=== PATIENT | male | born 2000 | race Caucasian/White ===

== ENCOUNTER 2019-05-28 14:31 | Inpatient (IN) | payer OTHER ==
[~2019-05-28] VITALS: Ht 185.4 cm; Wt 86.8 kg
[2019-05-28 15:12] LABS: HEMATOCRIT 44.1 % (42.0-52.0); HEMOGLOBIN 15.1 g/dl (13.5-17.5); MEAN CORPUSCULAR HEMOGLOBIN 29.4 pg (27.0-33.0); MEAN CORPUSCULAR HGB CONC 34.2 g/dl (32.0-36.5); PLATELET COUNT, AUTOMATED 177 10^3/uL (150-450); RED BLOOD COUNT 5.13 10^6/uL (4.30-6.10); WHITE BLOOD COUNT 4.8 10^3/uL (4.0-10.0)
[2019-05-28] MEDS ORDERED: NS 1,000 ML IV ONE (15:15)
[2019-05-28] MEDS ORDERED: CHARCOAL ACTIVATED LIQUID 25 GM/120 ML BTL PO ONE (15:15)
[2019-05-28 15:33] LABS: AMPHETAMINES LEVEL URINE NEGATIVE (NEGATIVE); BARBITURATES URINE NEGATIVE (NEGATIVE); BENZODIAZEPINES URINE NEGATIVE (NEGATIVE); CANNABINOIDS URINE NEGATIVE (NEGATIVE); COCAINE METABOLITE URINE NEGATIVE (NEGATIVE); METHADONE URINE NEGATIVE (NEGATIVE); OPIATES URINE NEGATIVE (NEGATIVE); PHENCYCLIDINE URINE NEGATIVE (NEGATIVE)
[2019-05-28 15:55] LABS: ACETAMINOPHEN LEVEL 18.4 UG/ML (10.0-30.0); ALBUMIN 3.9 GM/DL (3.2-5.2); ALT/SGPT 24 U/L (12-78); BILIRUBIN,DIRECT 0.2 MG/DL (0.0-0.2); BILIRUBIN,TOTAL 0.4 MG/DL (0.2-1.0); BLOOD UREA NITROGEN 6 MG/DL (7-18); CALCIUM LEVEL 8.4 MG/DL (8.5-10.1); CARBON DIOXIDE LEVEL 27 MEQ/L (21-32); CHLORIDE LEVEL 109 MEQ/L (98-107); CREATININE FOR GFR 1.03 MG/DL (0.70-1.30); ETHYL ALCOHOL (ETHANOL) 0.004 % (0.000-0.010); GLOMERULAR FILTRATION RATE > 60.0 (>60); GLUCOSE, FASTING 74 MG/DL (70-100); SALICYLATE LEVEL < 1.7 MG/DL (5.0-30.0); SODIUM LEVEL 143 MEQ/L (136-145); THYROID STIMULATING HORMONE 0.786 uIU/ML (0.358-3.740)
[2019-05-28 19:26] LABS: ACETAMINOPHEN LEVEL 5.3 UG/ML (10.0-30.0); BLOOD UREA NITROGEN 4 MG/DL (7-18); CALCIUM LEVEL 8.5 MG/DL (8.5-10.1); CARBON DIOXIDE LEVEL 24 MEQ/L (21-32); CHLORIDE LEVEL 110 MEQ/L (98-107); CREATININE FOR GFR 0.95 MG/DL (0.70-1.30); GLOMERULAR FILTRATION RATE > 60.0 (>60); GLUCOSE, FASTING 83 MG/DL (70-100); POTASSIUM SERUM 3.7 MEQ/L (3.5-5.1); SODIUM LEVEL 142 MEQ/L (136-145)
--- NOTE | 2019-05-28 20:48 | ECGEPIP ---
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
--- NOTE | 2019-05-28 20:51 | ECGEPIP ---
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
[2019-05-28] MEDS: THIAMINE 100 MG TAB PO SCH (21:00)
[2019-05-28] MEDS ORDERED: NICOTINE 21MG/24HR 1 EA TRANSDERMAL TD ONE (21:30)
[2019-05-28] MEDS ORDERED: MOM 30ML SUSPENSION UDC PO PRN (22:45)
[2019-05-28] MEDS ORDERED: LORazepam 2 MG TAB PO PRN (22:45)
[2019-05-28] MEDS ORDERED: hydrOXYzine 50 MG TAB PO PRN (22:45)
[2019-05-28] MEDS ORDERED: ACETAMINOPHEN TAB 650MG DOSE (2X325MG) PO PRN (22:45)
[2019-05-28] MEDS ORDERED: MAALOX 30 ML SUSP *UDC PO PRN (22:45)
[2019-05-29 04:35] VITALS: BP 134/80
[2019-05-29 06:00] VITALS: BP 111/72
--- NOTE | 2019-05-29 09:07 | MHHPEPDOC ---
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 reportedly after taking two Sudafed and drinking NyQuil. He has a significant problem with alcoholism and has gone through the alcohol treatment program. He had been sober for three weeks and began to drink NyQuil. He reports that he wanted to drink until he pass out, but was ambivalent about waking up. The patient was subsequently brought in and assessed. When the patient was met with, he described that he'd had multiple psychosocial stressors in the form of difficulties with girlfriend, difficulties with brother and had been struggling with alcoholism. He reports that he had a cold and that he had difficulties with sleeping and had been denied a pass to see his girlfriend, and he worried significantly that he would lose her, but he say that he had taken the NyQuil as a way of passing out, but had specifically said he had not drunken it in specific order to end his life. He does describe some appetite, sleeping problems and fatigue problems secondary to multiple stressors, but reports prior to this he had been doing quite well, enjoys his job in the and reports that he feels he needs help with his alcoholism. Review Of Systems Depression: As above. Anxiety: The patient denies any excessive worry associated with physical symptoms. They deny any experience of discreet panic in the past. Jaylin: The patient denies any episodes of euphoria/dysphoria associated with decreased need for sleep, hedonism, talkatively or impulsivity lasting longer than 5 days. Psychotic: The patient denies any experiences of auditory or visual hallucinations. They deny any episodes of paranoia or delusional thinking in the past Trauma: The patient denies any traumatic events associated with nightmares or intrusive thoughts. Borderline: The patient screens negative for borderline personality at this junction. Past Psychiatric History Notes from [facility] where he gets therapy were reviewed. He's never been tried on medications. He has no previous psychiatric diagnosis. Reports no history of suicide attempts or psychiatric inpatient admissions. Allergies Please see below. Family Psychiatric History The patient reports his mom and dad had "everything." His aunt suffered from heroin and that his grandfather had by suicide. Social History The patient currently lives in local areas of [place], private first class, never . Has a girlfriend for last 6 months, no children. He's had no legal trouble except for some income. Completed high school and has been generally doing well in his service in the with only a reprimand for leaving his duty while intoxicated, which is a recent stressor. He's been in the [employer] for 2 years. No history of deployments. He is not currently being med- boarded. His estimated date of leaving the services is 2020. Substance Abuse History The patient reports that he smokes tobacco roughly half a pack a day. He reports that he used to drink until he would black out regularly. He has been sober for three weeks, but had a cold and started to drink the NyQuil noticing that it had alcohol in it. Denies any history of cannabis, opioid, stimulant or other use. Is currently in the [facility] addictions program. No history of long-term inpatient treatment. Medical History Patient has no significant past medical history. Mental Status Examination General: Well dressed with good hygiene Speech: Spontaneous and fluid Thought processes: Linear and logical MSK: Smooth and coordinated gait, no signs of tremors or involuntary orofacial movements Thought content: Future orientated Abstract reasoning, and computation: Intact Description of associations: Intact Description of abnormal or psychotic thoughts: Denies any suicidal or homicidal ideation. Denies any auditory or visual hallucinations. Does not appear to be responding to internal stimuli. Does not appear to be endorsing any bizarre or paranoid ideation. Judgment: fair Insight: fair Orientation: Alert and orientated 3 Cognition: Grossly normal Recent and remote memory: Intact Attention span and concentration: Intact Fund of knowledge: Adequate Mood: "okay" Affect: Euthymic with a full range Diagnoses Unspecified depressive disorder. Rule out adjustment versus substance intoxication. Alcohol use disorder, severe. Tobacco use disorder, severe. 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 He has a significant history of alcoholism and he notes that he does drink alcohol and had been drinking the NyQuil as it was a reported substitute for alcohol. He had reportedly made statements that he was trying to pass out and didn't care whether he "woke up or not." However, he reports that he specifically was not intending to end his life. The patient did not require any significant medical interventions in the emergency room and is possible he was intoxicated with the cough syrup prior to the reported statements. We'll start Wellbutrin 150 mg extend release. Discussed risk, benefits, potential side effects. Discussed nicotine treatment as well. However, the patient reports that he is pre-contemplative at this time. Disposition The patient will be discharged tomorrow as he does not meet criteria for involuntary holding. At the time of tomorrow the 40-hour extensions, he has not been having suicidal or homicidal ideation. He has not been demonstrating any significant signs or symptoms of mental illness impairing his ability to take care of himself. He has been amenable, friendly and nearly ideal patient on the unit. The notes from [facility] do not support a history of significant risk and the events around he reported "overdose" are highly consistent with an individual intoxicated and indicted to alcohol, drinking NyQuil as a way of avoiding a standard practice/thought process and alcoholism rather than severe major depression. The patient although is amenable to trying Wellbutrin. Problem List Ineffective coping to substance use. Initial Treatment Plan 1. Patient was admitted on a 9.39 legal status. 2. Complete history was obtained. 3. With patients permission, family will be contacted and database will be expanded. 4. Patients medication regimen will be reviewed and changed accordingly. 5. Patient will be provided with protected environment. 6. Patient will be treated with individual, group, and milieu therapies. 7. Patient will receive supportive psych-education. 8. Discharge planning will commence immediately. 9. Outpatient follow-up treatment will be strongly recommended. 10. The initial treatment plan will focus initially on: Estimated Length Of Stay 2 days. Time Spent 45 minutes. Vital Signs Vital Signs Date Time Temp Pulse Resp B/P (MAP) Pulse Ox O2 Delivery O2 Flow Rate FiO2 05/29/19 06:00 99.1 87 16 111/72 (85) 05/29/19 04:22 100 Room Air Laboratory Data 24H Labs Laboratory Tests 2 05/28/19 14:46: Urine Amphetamines Screen NEGATIVE, Urine Benzodiazepines Screen NEGATIVE, Urine Opiates Screen NEGATIVE, Urine Methadone Screen NEGATIVE, Urine Barbiturates Screen NEGATIVE, Urine Phencyclidine Screen NEGATIVE, Urine Cocaine Metabolite Screen NEGATIVE, Urine Cannabinoids Screen NEGATIVE 05/28/19 14:56: Nucleated Red Blood Cells % (auto) 0.0, Anion Gap 7L, Glomerular Filtration Rate > 60.0, Calcium Level 8.4L, Aspartate Amino Transf (AST/SGOT) 3L, Alanine Aminotransferase (ALT/SGPT) 24, Alkaline Phosphatase 93, Total Bilirubin 0.4, Direct Bilirubin 0.2, Total Protein 7.0, Albumin 3.9, Albumin/Globulin Ratio 1.26, Thyroid Stimulating Hormone (TSH) 0.786, Salicylates Level < 1.7L, Acetaminophen Level 18.4, Ethyl Alcohol Level 0.004 05/28/19 18:36: Anion Gap 8, Glomerular Filtration Rate > 60.0, Calcium Level 8.5, Acetaminophen Level 5.3L, Blood Urea Nitrogen 4L, Creatinine 0.95, Sodium Level 142, Potassium Level 3.7, Chloride Level 110H, Carbon Dioxide Level 24 CBC/BMP Laboratory Tests 05/28/19 14:56 Red Blood Count 5.13, Mean Corpuscular Volume 86.0, Mean Corpuscular Hemoglobin 29.4, Mean Corpuscular Hemoglobin Concent 34.2, Red Cell Distribution Width 12.0 05/28/19 18:36 Calcium Level 8.5 Medications Scheduled Bupropion Hcl (Bupropion Xl) 150 Mg Tab.er.24h, 150 MG PO DAILY for mood Nicotine (Nicotrol) 10 Mg Cartridge, 1 PUFF INH ASDIRECTED for tobacco Allergies Coded Allergies: No Known Allergies (Unverified , 05/28/19) BRYON OROZCO DO May 29, 2019 09:07
[2019-05-29] MEDS: FOLIC ACID 1 MG TAB PO SCH (09:21)
[2019-05-29] MEDS: THIAMINE 100 MG TAB PO SCH ×2 (09:21→20:30)
[2019-05-29] MEDS: MULTIVITAMINS/MINERALS THERAP 1 TAB PO SCH (09:21)
--- NOTE | 2019-05-29 12:42 | HPEPDOC ---
[facility] Medical History & Physical Date of Admission May 29, 2019 Date of Service: May 29, 2019 History and Physical CHIEF COMPLAINT: HISTORY OF PRESENT ILLNESS: 19 yo male admitted to [facility], hospitalist consulted for medical management. Patient with no medical complaints today. He acknowledge nicotine abuse and alcohol abuse. Last drink over one week ago. States he has never gone through alcohol withdrawal. States he 'drinks as much as he can', but could not quantify amount or frequency. Denies chest pain, headache, changes in vision, abdominal pain, N/V/D. PAST MEDICAL HISTORY: Denies PAST SURGICAL HISTORY: Denies SOCIAL HISTORY: Tobacco use: states 5-10 cigarettes / day for few years ETOH: admits to EtOH abuse Illicit drug use: denies ALLERGIES: Please see below. REVIEW OF SYSTEMS: Negative except as per HPI. HOME MEDICATIONS: Please see below. PHYSICAL EXAMINATION: VITAL SIGNS: See below General: NAD, sitting comfortably at edge of exam table HEENT: NC/AT, EOMI, PERRL Lungs: CTA B/L Heart: +S1S2, RRR Abd: soft, NT, +BS Ext: no edema LABORATORY DATA: See below. MICROBIOLOGY: Please see below. ASSESSMENT: 19 yo male admitted to [facility], hospitalist consult for medical management. #Psych - as per primary team #alcohol abuse - no s/s withdrawal #nicotine abuse - nicotine replacement therapy Vital Signs Vital Signs Date Time Temp Pulse Resp B/P (MAP) Pulse Ox O2 Delivery O2 Flow Rate FiO2 05/29/19 09:46 Room Air 05/29/19 06:00 99.1 87 16 111/72 (85) 05/29/19 04:22 100 Laboratory Data Labs 24H Laboratory Tests 2 05/28/19 14:46: Urine Amphetamines Screen NEGATIVE, Urine Benzodiazepines Screen NEGATIVE, Urine Opiates Screen NEGATIVE, Urine Methadone Screen NEGATIVE, Urine Barbiturates Screen NEGATIVE, Urine Phencyclidine Screen NEGATIVE, Urine Cocaine Metabolite Screen NEGATIVE, Urine Cannabinoids Screen NEGATIVE 05/28/19 14:56: Nucleated Red Blood Cells % (auto) 0.0, Anion Gap 7L, Glomerular Filtration Rate > 60.0, Calcium Level 8.4L, Aspartate Amino Transf (AST/SGOT) 3L, Alanine Aminotransferase (ALT/SGPT) 24, Alkaline Phosphatase 93, Total Bilirubin 0.4, Direct Bilirubin 0.2, Total Protein 7.0, Albumin 3.9, Albumin/Globulin Ratio 1.26, Thyroid Stimulating Hormone (TSH) 0.786, Salicylates Level < 1.7L, Acetaminophen Level 18.4, Ethyl Alcohol Level 0.004 05/28/19 18:36: Anion Gap 8, Glomerular Filtration Rate > 60.0, Calcium Level 8.5, Acetaminophen Level 5.3L, Blood Urea Nitrogen 4L, Creatinine 0.95, Sodium Level 142, Potassium Level 3.7, Chloride Level 110H, Carbon Dioxide Level 24 CBC/BMP Laboratory Tests 05/28/19 14:56 Red Blood Count 5.13, Mean Corpuscular Volume 86.0, Mean Corpuscular Hemoglobin 29.4, Mean Corpuscular Hemoglobin Concent 34.2, Red Cell Distribution Width 12.0 05/28/19 18:36 Calcium Level 8.5 Home Medications No Active Prescriptions or Reported Meds Allergies Coded Allergies: No Known Allergies (Unverified , 05/28/19) A-FIB/CHADSVASC A-FIB History Current/History of A-Fib/PAF?: No PASTOR OTT MD May 29, 2019 12:42
[2019-05-29] MEDS ORDERED: guaiFENesin ER 600 MG TAB PO PRN (17:00)
[2019-05-29] MEDS ORDERED: OXYMETAZOLINE NASAL SPRAY (AFRIN) PRN (17:00)
[2019-05-29 18:00] VITALS: BP 132/82
[2019-05-29] MEDS ORDERED: MIRTAZAPINE 15 MG TAB PO SCH (21:00)
[2019-05-30 06:29] VITALS: BP 115/69
[2019-05-30] MEDS ORDERED: buPROPion **XL** TABLET 150MG (WELLBUTRIN XL) PO SCH (09:00)
--- NOTE | 2019-05-30 09:41 | MHDSPDOC ---
[facility] Discharge Summary Discharge Summary DATE OF ADMISSION: May 28, 2019 at 22:34 DATE OF DISCHARGE: 05/30/19 Discharge Glenn Mejia MRN: N/A Date of : N/A Date of Service: 05/30/2019 Diagnoses Unspecified depressive disorder. Rule out adjustment versus substance intoxication. Alcohol use disorder, severe. Tobacco use disorder, severe. 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 He has a significant problem with alcoholism and has gone through the alcohol treatment program. He had been sober for three weeks and began to drink NyQuil. He reports that he wanted to drink until he pass out, but was ambivalent about waking up. The patient was subsequently brought in and assessed. When the patient was met with, he described that he'd had multiple psychosocial stressors in the form of difficulties with girlfriend, difficulties with brother and had been struggling with alcoholism. He reports that he had a cold and that he had difficulties with sleeping and had been denied a pass to see his girlfriend, and he worried significantly that he would lose her, but he say that he had taken the NyQuil as a way of passing out, but had specifically said he had not drunken it in specific order to end his life. He does describe some appetite, sleeping problems and fatigue problems secondary to multiple stressors, but reports prior to this he had been doing quite well, enjoys his job in the and reports that he feels he needs help with his alcoholism. Consultants Involved Hospitalist/PCP screening Treatment and Progress On The Unit The patient was admitted to the Inpatient Unit and initially observed. He was started on Wellbutrin 150 mg daily. He did well and recovered very quickly suggesting a diagnosis of adjustment disorder. He relates the situation that had led him into the Inpatient Unit. It appeared that the patient stated that he was drinking NyQuil as he suffers from significant alcoholism and noted that he usually will drink this to pass out, but he had stated that he had had a thought that he wouldn't care necessarily if he didn't wake up, but had not specifically drunk in the NyQuil in order to self-harm. He explained this well and collateral information supported this series of events, review of his [facility] records, which revealed no safety problems, clinical depression or any other issues other than adjustment to a relational stressor, but no official psychiatric diagnosis. The patient was observed for 48 hours, where he was not demonstrating any suicidal or homicidal ideation. He was participating well in treatment demonstrated very good insight into his situation and had consented to going to long-term substance use treatment, as he had recognized that is drinking was a problem. The patient, however, did request to leave and after speaking to his Commander, Captain Brenner and Stephania Patel [facility], they were very ambivalent about him leaving on Sunday. However, he was at the 48-hour darrell, in which he would then need to be extended involuntarily. After review of the compilation of the information above as well as no suicidal or homicidal ideation being relate during his stay with us as well as no signs or symptoms of significant depression impairing his ability to care for himself. My clinical judgment, I could not ethically extend the patient's involuntary admission. As he was not posing any immediate risk to himself or others. I relayed this to Stephania Patel. They had some concerns; however, when posed they were not able to give me any discrete rationale or information that was not already part of my consideration, in which the patient's admission could be ethically extended. He declined further voluntary admission after discussion of the risks and benefits of that and was discharged in good hussain on Wellbutrin 150 mg as well as a Nicotrol inhaler for his smoking of tobacco. Discharge Assessment 19-year-old man presents to [facility] with primarily adjustment after becoming intoxicated on NyQuil with reported passive suicidal ideation, which appears to be misinterpreted as a suicide attempt in my clinical judgment and reasoning as well as a review of the totality of the information of this patient's case, it appears that this was more likely an individual suffering from alcoholism, drinking NyQuil, which is well known to contain alcohol and had had passive suicidal ideation, but had not in fact tried to injure himself. He required no medical treatment on his admission further supporting the series of events related by the patient. Observation on our unit shows an insightful young man who engaged with his treatment team well and had no further dynamic risk factors that could be altered or changed and thus in the judgment of this provider did not pose an imminent risk to himself or others or was gravely disa bled so much so that he could be extended on a further involuntary admission until Sunday. The [facility] and Chain of Command were concerned; however, they were unable to relay any objective information to me that would be the bases for further involuntary extension of the patient's admission. He declined voluntary and thus was discharged in good hussain. Mental Status Examination General: Well dressed with good hygiene Speech: Spontaneous and fluid Thought processes: Linear and logical MSK: Smooth and coordinated gait, no signs of tremors or involuntary orofacial movements Thought content: Future orientated Abstract reasoning, and computation: Intact Description of associations: Intact Description of abnormal or psychotic thoughts: Denies any suicidal or homicidal ideation. Denies any auditory or visual hallucinations. Does not appear to be responding to internal stimuli. Does not appear to be endorsing any bizarre or paranoid ideation. Judgment: fair Insight: fair Orientation: Alert and orientated 3 Cognition: Grossly normal Recent and remote memory: Intact Attention span and concentration: Intact Fund of knowledge: Adequate Mood: "okay" Affect: Euthymic with a full range Follow Up The social work team worked during the predischarge meeting in order to evaluate for further issues of lethality address them fully before discharge. They worked on safety planning with the patient's family members in order to ensure that the patient will have a safe and effective discharge. Time Spent The amount of time spent in the coordination of care for this patient was approximately 35 minutes. Sunday Vital Signs/I&Os Vital Signs Date Time Temp Pulse Resp B/P (MAP) Pulse Ox O2 Delivery O2 Flow Rate FiO2 05/30/19 06:29 98.0 65 16 115/69 (84) 05/29/19 09:46 Room Air 05/29/19 04:22 100 Medications Scheduled Bupropion Hcl (Bupropion Xl) 150 Mg Tab.er.24h, 150 MG PO DAILY for mood for 7 Days, #7 Nicotine (Nicotrol) 10 Mg Cartridge, 1 PUFF INH ASDIRECTED for tobacco for 30 Days, #1 Allergies Coded Allergies: No Known Allergies (Unverified , 05/28/19) BRYON OROZCO DO May 30, 2019 09:41
[2019-05-30] MEDS: MULTIVITAMINS/MINERALS THERAP 1 TAB PO SCH (09:54)
[2019-05-30] MEDS: FOLIC ACID 1 MG TAB PO SCH (09:55)
[2019-05-30] MEDS: THIAMINE 100 MG TAB PO SCH (09:55)
[2019-05-30] MEDS ORDERED: BUPR150T3 PO (10:54)
[2019-05-30] MEDS ORDERED: NICOINH INH (13:14)
== END 2019-05-30 13:15 | disposition home or self-care (01) | DRG 881 ==
LOC: EDBD 14:31 → M ED 14:31 → M ED INP 22:34 → M PSY 05-29 04:30
PROVIDERS: ADMIT Psychiatry & Neurology Psychiatry; ATTEND Psychiatry & Neurology Addiction Medicine
DX: F32.9 Major depressive disorder, single episode, unspecified (principal); Z63.0 Problems in relationship with spouse or partner; F43.20 Adjustment disorder, unspecified; F10.20 Alcohol dependence, uncomplicated; F17.210 Nicotine dependence, cigarettes, uncomplicated; Z79.899 Other long term (current) drug therapy; Z63.8 Other specified problems related to primary support group

== ENCOUNTER 2019-11-18 10:33 | Emergency (ER) | payer OTHER ==
[~2019-11-18] VITALS: Ht 185.4 cm; Wt 94.1 kg
[~2019-11-18 10:33] MED LIST: BUPR150T3 PO; NICOINH INH
[2019-11-18] MEDS ORDERED: ATARAX (10:38)
[2019-11-18] MEDS ORDERED: LEXA1TAB PO (10:38)
[2019-11-18] MEDS ORDERED: LIDOCAINE 2% MDV 20 ML VIAL SC ONE (11:00)
--- NOTE | 2019-11-18 11:47 | REP ---
Clinical: Trauma. Crush injury. Technique: AP, lateral, bilateral oblique views right third digit Findings: The osseous structures and joint spaces are intact and normal. There is no evidence for acute fracture or dislocation. Surrounding soft tissues are unremarkable. No subcutaneous emphysema or radiodense foreign body. Impression: No acute fracture or dislocation. Electronically Signed by Merlin Beverly MD 11/18/2019 11:39 A
[2019-11-18] MEDS ORDERED: ONDA4TAB6 PO (11:54)
[2019-11-18 11:58] VITALS: BP 130/80
== END 2019-11-18 12:09 | disposition home or self-care (01) ==
LOC: M ED 10:33
DX: S61.214A Laceration without foreign body of right ring finger without damage to nail, initial encounter (principal); W23.0XXA Caught, crushed, jammed, or pinched between moving objects, initial encounter; Y92.018 Other place in single-family (private) house as the place of occurrence of the external cause; F33.9 Major depressive disorder, recurrent, unspecified; F41.9 Anxiety disorder, unspecified; Z79.899 Other long term (current) drug therapy; F17.210 Nicotine dependence, cigarettes, uncomplicated

== ENCOUNTER 2019-11-24 11:13 | Emergency (ER) | payer OTHER ==
[~2019-11-24] VITALS: Ht 185.4 cm; Wt 92.9 kg
[~2019-11-24 11:13] MED LIST changes: +ATARAX; +LEXA1TAB PO; +ONDA4TAB6 PO
[2019-11-24] MEDS ORDERED: KEFL500C17 PO (11:51)
[2019-11-24 11:56] VITALS: BP 113/65
== END 2019-11-24 11:58 | disposition home or self-care (01) ==
LOC: M ED 11:13
DX: Z48.02 Encounter for removal of sutures (principal); T81.40XA Infection following a procedure, unspecified, initial encounter; Y92.9 Unspecified place or not applicable; Y93.9 Activity, unspecified; F17.200 Nicotine dependence, unspecified, uncomplicated; Z79.899 Other long term (current) drug therapy